=== PATIENT | male | born 1960 | race African-American/Black ===

== ENCOUNTER 2019-09-24 09:44 | Emergency (ER) | payer OTHER ==
[~2019-09-24] VITALS: Ht 185.4 cm; Wt 82.0 kg
[2019-09-24 13:07] LABS: HEMATOCRIT 31.7 % (42.0-52.0); HEMOGLOBIN 10.6 g/dL (14.0-18.0); MEAN CORPUSCULAR HEMOGLOBIN 29.6 pg (28.0-32.0); MEAN CORPUSCULAR VOLUME 88.4 fL (80.0-94.0); PLATELET 192 x1000/uL (130-400); RED BLOOD CELL COUNT 3.59 mill/uL (4.7-6.1); RED CELL DISTRIBUTION WIDTH 14.3 % (11.6-14.6)
[2019-09-24 16:01] VITALS: BP 140/76
== END 2019-09-24 16:25 | disposition home or self-care (01) ==
LOC: ER 09:44
DX: R55 Syncope and collapse (principal); E11.22 Type 2 diabetes mellitus with diabetic chronic kidney disease; I12.9 Hypertensive chronic kidney disease with stage 1 through stage 4 chronic kidney disease, or unspecified chronic kidney disease; N18.9 Chronic kidney disease, unspecified; Z99.2 Dependence on renal dialysis
CPT/HCPCS: 36415; 80048; 85027; 99283

== ENCOUNTER 2019-10-17 11:53 | Inpatient (IN) | payer OTHER ==
[~2019-10-17] VITALS: Ht 180.3 cm; Wt 79.8 kg
[2019-10-17 15:21] LABS: BASOPHILS % 1.6 % (0.0-2.0); EOSINOPHILS % 1.7 % (0.0-5.0); HEMATOCRIT. 31.6 % (42.0-52.0); HEMOGLOBIN. 10.8 g/dL (14.0-18.0); MEAN CORPUSCULAR HEMOGLOBIN 30.2 pg (28.0-32.0); MEAN CORPUSCULAR VOLUME 88.7 fL (80.0-94.0); MEAN PLATELET VOLUME 9.5 fl (7.4-10.4); MONOCYTES % 5.4 % (2.0-8.0); NEUTROPHILS % 65.3 % (40.0-76.0); PLATELET 288 x1000/uL (130-400); RED BLOOD CELL COUNT 3.56 mill/uL (4.7-6.1)
[2019-10-17] MEDS ORDERED: ACETAMINOPHEN 325MG TABLET PO PRN (17:30)
[2019-10-17] MEDS ORDERED: ONDANSETRON HCL 4MG/2ML INJ IV PRN (17:30)
[2019-10-17] MEDS ORDERED: IPRATROPIUM/ALBUTEROL 0.5-3(2.5)MG/3ML NEB HHN PRN (17:30)
[2019-10-17] MEDS ORDERED: CLONIDINE 0.1MG TABLET PO PRN (17:30)
[2019-10-17] MEDS ORDERED: DIPHENHYDRAMINE 50MG/ML VIAL IV PRN (17:30)
[2019-10-17 17:36] LABS: PHOSPHORUS 2.9 mg/dL (2.5-4.9)
[2019-10-17] MEDS ORDERED: CLONIDINE 0.2MG TABLET PO ONE (20:15)
[2019-10-17 22:10] VITALS: BP 129/75
[2019-10-18] MEDS ORDERED: CLON0.1T PO (01:24)
[2019-10-18] MEDS ORDERED: PRO1 PO (01:25)
[2019-10-18] MEDS ORDERED: ASPI-1393 PO (01:25)
[2019-10-18] MEDS ORDERED: ATOR10TA69 PO (01:25)
[2019-10-18] MEDS ORDERED: FURO20TA4 PO (01:25)
[2019-10-18 05:53] VITALS: BP 152/74
[2019-10-18 08:00] VITALS: BP 110/74
[2019-10-18 12:00] VITALS: BP 176/68
[2019-10-18] MEDS ORDERED: NIFEDIPINE 10MG CAPSULE PO SCH (15:00)
[2019-10-18 16:00] VITALS: BP 120/84
[2019-10-18 17:25] VITALS: BP 149/80
[2019-10-18] MEDS ORDERED: ATORVASTATIN CALCIUM 10MG TABLET PO SCH (21:00)
[2019-10-18] MEDS ORDERED: CLONIDINE 0.1MG TABLET PO SCH (22:00)
== END 2019-10-18 18:59 | disposition home or self-care (01) | DRG 314 ==
LOC: ER 12:47 → 7WST 16:43 → EDBEDREQ 19:44 → ENRESERV 20:38
PROVIDERS: ADMIT Internal Medicine; ATTEND Internal Medicine
DX: T82.838A Hemorrhage due to vascular prosthetic devices, implants and grafts, initial encounter (principal); N18.6 End stage renal disease; I12.0 Hypertensive chronic kidney disease with stage 5 chronic kidney disease or end stage renal disease; Y83.2 Surgical operation with anastomosis, bypass or graft as the cause of abnormal reaction of the patient, or of later complication, without mention of misadventure at the time of the procedure; Y84.1 Kidney dialysis as the cause of abnormal reaction of the patient, or of later complication, without mention of misadventure at the time of the procedure; D64.9 Anemia, unspecified; E11.22 Type 2 diabetes mellitus with diabetic chronic kidney disease; Z79.84 Long term (current) use of oral hypoglycemic drugs; Z99.2 Dependence on renal dialysis; Y92.89 Other specified places as the place of occurrence of the external cause; Z79.82 Long term (current) use of aspirin; Z79.899 Other long term (current) drug therapy
CPT/HCPCS: 36415; 71045; 80048; 83735; 84100; 85025; 93970; 99285; C1893

== ENCOUNTER 2023-10-20 00:44 | Emergency (ER) | payer BC, MEDICAID, OTHER ==
[~2023-10-20] VITALS: Ht 177.8 cm; Wt 70.0 kg
[~2023-10-20 00:44] MED LIST: AMLO10TA80 PO; ASPI-1406 MT; HYDR-4134 PO
[2023-10-20 00:47] VITALS: O2SAT 97
[2023-10-20] MEDS ORDERED: SODIUM CHLORIDE 0.9% 1,000 ML IV ONE (01:00)
[2023-10-20 03:14] LABS: BASOPHILS % 0.8 % (0.0-2.0); EOSINOPHILS % 0.3 % (0.0-5.0); HEMATOCRIT. 42.5 % (42.0-52.0); HEMOGLOBIN. 13.9 g/dL (14.0-18.0); LYMPHOCYTES % 14.7 % (20.0-50.0); MEAN CORPUSCULAR HEMOGLOBIN 29.2 pg (28.0-32.0); MEAN CORPUSCULAR HGB CONC 32.8 g/dL (31.0-37.0); MEAN CORPUSCULAR VOLUME 88.9 fL (80.0-94.0); MEAN PLATELET VOLUME 7.2 fl (7.4-10.4); MONOCYTES % 8.6 % (2.0-8.0); NEUTROPHILS % 75.6 % (40.0-76.0); PLATELET 401 x1000/uL (130-400); RED BLOOD CELL COUNT 4.78 mill/uL (4.7-6.1); RED CELL DISTRIBUTION WIDTH 18.2 % (11.6-14.6); WHITE BLOOD COUNT 8.9 x1000/uL (4.5-11.0)
[2023-10-20 03:36] LABS: PROTHROMBIN TIME 11.1 sec (9.6-11.0)
[2023-10-20 03:59] LABS: ALANINE AMINOTRANSFERASE 19 IU/L (10-49); ALBUMIN 4.8 g/dL (3.2-4.8); ASPARTATE AMINOTRANSFERASE 20 IU/L (<34); BILIRUBIN TOTAL 0.4 mg/dL (0.1-1.0); CALCIUM 9.7 mg/dL (8.7-10.4); CARBON DIOXIDE 35 mEq/L (21-32); CHLORIDE 96 mEq/L (98-107); GLUCOSE 92 mg/dL (70-105); POTASSIUM 3.3 mEq/L (3.5-5.1); PROTEIN TOTAL 9.7 g/dL (6.0-8.3); SODIUM 138 mEq/L (136-145); UREA NITROGEN BLOOD 30 mg/dL (9-23)
[2023-10-20 04:06] LABS: ETHANOL BLOOD < 10 mg/dL (<10)
[2023-10-20 04:29] LABS: CREATININE 5.4 mg/dL (0.6-1.3); TROPONIN I HIGH SENSITIVITY 89 ng/L (3.0-53)
[2023-10-20 07:39] VITALS: BP 120/72; PULSE 82; RESP 16; TEMP 98.4
== END 2023-10-20 07:46 | disposition left against medical advice (07) ==
LOC: ER 00:44
DX: I95.9 Hypotension, unspecified (principal); R55 Syncope and collapse; E11.22 Type 2 diabetes mellitus with diabetic chronic kidney disease; I12.0 Hypertensive chronic kidney disease with stage 5 chronic kidney disease or end stage renal disease; N18.6 End stage renal disease; Z98.890 Other specified postprocedural states
CPT/HCPCS: 80053; 80320; 83605; 85025; 85610; 86850; 86900; 86901; 87040; 84484; 36415; 84145; 71045; 93005; 96360; 99285; J7030; G0480

== ENCOUNTER 2024-03-24 09:29 | Inpatient (IN) | payer BC, MEDICAID, OTHER ==
[~2024-03-24] VITALS: Ht 175.3 cm; Wt 70.8 kg
[~2024-03-24 09:29] MED LIST changes: -HYDR-4134 PO; +HYDR25TA78 PO
[2024-03-24] MEDS ORDERED: NIFEDIPINE (09:34)
[2024-03-24] MEDS ORDERED: LISINOPRIL (09:34)
[2024-03-24] MEDS ORDERED: TICAGRELOR (09:34)
[2024-03-24] MEDS ORDERED: LEVETIRACETAM (09:34)
[2024-03-24] MEDS ORDERED: BUPROPION (09:34)
[2024-03-24] MEDS ORDERED: SEVELAMER (09:34)
[2024-03-24] MEDS ORDERED: CARVEDILOL (09:34)
[2024-03-24] MEDS ORDERED: TRAZODONE (09:34)
[2024-03-24 10:19] LABS: BASOPHILS % 0.9 % (0.0-2.0); EOSINOPHILS % 0.3 % (0.0-5.0); HEMATOCRIT. 47.7 % (42.0-52.0); HEMOGLOBIN. 15.7 g/dL (14.0-18.0); LYMPHOCYTES % 22.3 % (20.0-50.0); MEAN CORPUSCULAR HGB CONC 32.8 g/dL (31.0-37.0); MEAN CORPUSCULAR VOLUME 91.3 fL (80.0-94.0); MEAN PLATELET VOLUME 7.3 fl (7.4-10.4); MONOCYTES % 8.2 % (2.0-8.0); NEUTROPHILS % 68.3 % (40.0-76.0); PLATELET 364 x1000/uL (130-400); RED BLOOD CELL COUNT 5.22 mill/uL (4.7-6.1); RED CELL DISTRIBUTION WIDTH 18.3 % (11.6-14.6); WHITE BLOOD COUNT 7.2 x1000/uL (4.5-11.0)
[2024-03-24] MEDS: SODIUM CHLORIDE 0.9% 1000ML BAG (SEPSIS BOLUS) IV ONE (10:25)
[2024-03-24] MEDS: PIPERACILLIN/TAZO 3.375G/50ML 50 ML IV ONE (10:25)
[2024-03-24 10:29] LABS: PROTHROMBIN TIME 11.6 sec (9.6-11.0)
[2024-03-24 10:51] LABS: TROPONIN I HIGH SENSITIVITY 68 ng/L (3.0-53)
[2024-03-24] MEDS: VANCOMYCIN 1G PREMIX 200 ML IV ONE (10:53)
[2024-03-24 14:36] LABS: CHLORIDE 101 mEq/L (98-107); POTASSIUM 3.6 mEq/L (3.5-5.1); SODIUM 139 mEq/L (136-145)
[2024-03-24 14:37] LABS: CALCIUM 8.9 mg/dL (8.7-10.4); CARBON DIOXIDE 27 mEq/L (21-32)
[2024-03-24 14:42] LABS: GLUCOSE 156 mg/dL (70-105); UREA NITROGEN BLOOD 33 mg/dL (9-23)
[2024-03-24 14:44] LABS: ALANINE AMINOTRANSFERASE 13 IU/L (10-49); ALBUMIN 4.1 g/dL (3.2-4.8); ASPARTATE AMINOTRANSFERASE 16 IU/L (<34); BILIRUBIN TOTAL 0.2 mg/dL (0.1-1.0)
[2024-03-24 14:53] LABS: CREATININE 6.4 mg/dL (0.6-1.3)
[2024-03-24 15:20] VITALS: BP 136/74; PULSE 61; RESP 20; TEMP 97.9
[2024-03-24] MEDS ORDERED: DEXTROSE 50% WATER 50ML SYRINGE IV PRN (17:00)
[2024-03-24] MEDS: BLOOD SUGAR DIAGNOSTIC STRIP TEST SCH (17:10)
[2024-03-24] MEDS: INSULIN LISPRO 100 UNITS/ML SUBCUT SCH (17:40)
[2024-03-24] MEDS ORDERED: IPRATROPIUM/ALBUTEROL 0.5-3(2.5)MG/3ML NEB HHN PRN (19:45)
[2024-03-24] MEDS ORDERED: CLONIDINE 0.1MG TABLET PO PRN (19:45)
[2024-03-24] MEDS ORDERED: ONDANSETRON HCL 4MG/2ML INJ IV PRN (19:45)
[2024-03-24] MEDS ORDERED: ACETAMINOPHEN 325MG TABLET PO PRN (19:45)
[2024-03-24] MEDS ORDERED: DIPHENHYDRAMINE 50MG/ML VIAL IV PRN (19:45)
[2024-03-24 20:00] VITALS: BP 143/79; PULSE 59; RESP 20; TEMP 97.4
[2024-03-25] VITALS: BP 119/69; PULSE 62; RESP 20; TEMP 97
[2024-03-25 04:00] VITALS: BP 137/86; PULSE 61; RESP 20; TEMP 97.2
[2024-03-25 06:05] LABS: BASOPHILS % 1.2 % (0.0-2.0); EOSINOPHILS % 1.9 % (0.0-5.0); HEMATOCRIT. 39.8 % (42.0-52.0); LYMPHOCYTES % 26.1 % (20.0-50.0); MEAN CORPUSCULAR HEMOGLOBIN 30.1 pg (28.0-32.0); MEAN CORPUSCULAR HGB CONC 32.8 g/dL (31.0-37.0); MEAN CORPUSCULAR VOLUME 91.9 fL (80.0-94.0); MEAN PLATELET VOLUME 7.7 fl (7.4-10.4); MONOCYTES % 11.1 % (2.0-8.0); NEUTROPHILS % 59.7 % (40.0-76.0); PLATELET 275 x1000/uL (130-400); RED BLOOD CELL COUNT 4.33 mill/uL (4.7-6.1); RED CELL DISTRIBUTION WIDTH 17.9 % (11.6-14.6); WHITE BLOOD COUNT 5.8 x1000/uL (4.5-11.0)
[2024-03-25 06:11] LABS: POTASSIUM 3.4 mEq/L (3.5-5.1)
[2024-03-25 06:12] LABS: CALCIUM 9.4 mg/dL (8.7-10.4)
[2024-03-25 06:33] LABS: CREATININE 7.7 mg/dL (0.6-1.3)
[2024-03-25 08:00] VITALS: BP 131/80; PULSE 68; RESP 20; TEMP 97.5
[2024-03-25 11:38] LABS: TROPONIN I HIGH SENSITIVITY 70 ng/L (3.0-53)
[2024-03-25 12:00] VITALS: BP 163/80; PULSE 65; RESP 18; TEMP 97.1
[2024-03-25] MEDS: SEVELAMER CARBONATE 800 MG TABLET PO SCH (12:01)
[2024-03-25] MEDS: FOLIC ACID/VITAMIN B COMP W-C TABLET PO SCH (12:01)
[2024-03-25] MEDS: MIDODRINE HCL 5MG TABLET PO SCH (14:39)
[2024-03-25 14:56] LABS: HEPATITIS B SURFACE ANTIGEN NEGATIVE (Negative)
[2024-03-25 15:17] LABS: HEPATITIS A AB IGM NEGATIVE (Negative); HEPATITIS B CORE AB IGM NEGATIVE (Negative)
[2024-03-25 15:18] LABS: HEPATITIS C AB NON REACTIVE (Neg) (Negative)
[2024-03-25 16:00] VITALS: BP 169/91; PULSE 64; RESP 18; TEMP 98.6
[2024-03-25 20:00] VITALS: BP 101/67; PULSE 64; RESP 18; TEMP 97.6
[2024-03-26] VITALS (14 sets, daily range): BP systolic 110–178; BP diastolic 49–89; PULSE 2–81; RESP 16–20; TEMP 97.4–98.6
[2024-03-26 07:42] LABS: CHLORIDE 100 mEq/L (98-107); SODIUM 139 mEq/L (136-145)
[2024-03-26 07:43] LABS: CALCIUM 9.4 mg/dL (8.7-10.4); CARBON DIOXIDE 27 mEq/L (21-32)
[2024-03-26 07:48] LABS: GLUCOSE 64 mg/dL (70-105)
[2024-03-26 07:49] LABS: UREA NITROGEN BLOOD 50 mg/dL (9-23)
[2024-03-26 07:50] LABS: PHOSPHORUS 6.8 mg/dL (2.5-4.9)
[2024-03-26 07:55] LABS: BASOPHILS % 0.6 % (0.0-2.0); EOSINOPHILS % 2.8 % (0.0-5.0); HEMATOCRIT. 38.5 % (42.0-52.0); HEMOGLOBIN. 13.1 g/dL (14.0-18.0); LYMPHOCYTES % 29.7 % (20.0-50.0); MEAN CORPUSCULAR HEMOGLOBIN 30.6 pg (28.0-32.0); MEAN CORPUSCULAR HGB CONC 34.1 g/dL (31.0-37.0); MEAN CORPUSCULAR VOLUME 89.9 fL (80.0-94.0); MEAN PLATELET VOLUME 7.7 fl (7.4-10.4); MONOCYTES % 10.2 % (2.0-8.0); NEUTROPHILS % 56.7 % (40.0-76.0); PLATELET 263 x1000/uL (130-400); RED BLOOD CELL COUNT 4.28 mill/uL (4.7-6.1); RED CELL DISTRIBUTION WIDTH 17.7 % (11.6-14.6)
[2024-03-26 09:07] LABS: TROPONIN I HIGH SENSITIVITY 82 ng/L (3.0-53)
[2024-03-26 09:08] LABS: CREATININE 9.2 mg/dL (0.6-1.3)
[2024-03-27] VITALS: BP 128/76; PULSE 76; RESP 19; TEMP 98.2
[2024-03-27 04:00] VITALS: BP 124/80; PULSE 80; RESP 20; TEMP 97.8
[2024-03-27 08:00] VITALS: BP 148/90; PULSE 60; RESP 18; TEMP 97.5
[2024-03-27 11:49] VITALS: BP 148/90; PULSE 60; TEMP 97.5; O2SAT 100
[2024-05-14] MEDS ORDERED: ATOR80TA MT (18:31)
== END 2024-03-27 14:20 | disposition home or self-care (01) | DRG 73 ==
LOC: ER 09:47 → 8WST 12:56 → EDBEDREQTM 12:59 → EDBEDREQ 12:59
PROVIDERS: ADMIT Internal Medicine; ATTEND Internal Medicine
PROC: 5A1D70Z Performance of Urinary Filtration, Intermittent, Less than 6 Hours Per Day (ICD-10-PCS; principal; 2024-03-26)
DX: G90.8 Other disorders of autonomic nervous system (principal); N18.6 End stage renal disease; I13.2 Hypertensive heart and chronic kidney disease with heart failure and with stage 5 chronic kidney disease, or end stage renal disease; I69.352 Hemiplegia and hemiparesis following cerebral infarction affecting left dominant side; I50.32 Chronic diastolic (congestive) heart failure; L97.922 Non-pressure chronic ulcer of unspecified part of left lower leg with fat layer exposed; L97.912 Non-pressure chronic ulcer of unspecified part of right lower leg with fat layer exposed; I95.9 Hypotension, unspecified; D64.9 Anemia, unspecified; E11.22 Type 2 diabetes mellitus with diabetic chronic kidney disease; E87.6 Hypokalemia; E11.51 Type 2 diabetes mellitus with diabetic peripheral angiopathy without gangrene; I44.7 Left bundle-branch block, unspecified; I44.0 Atrioventricular block, first degree; L98.492 Non-pressure chronic ulcer of skin of other sites with fat layer exposed; L85.3 Xerosis cutis; I27.21 Secondary pulmonary arterial hypertension; E11.621 Type 2 diabetes mellitus with foot ulcer; Z79.84 Long term (current) use of oral hypoglycemic drugs; Z99.2 Dependence on renal dialysis; Z79.899 Other long term (current) drug therapy
CPT/HCPCS: 36415; 71045; 80048; 80053; 82962; 83605; 83735; 83880; 84100; 84145; 84484; 85025; 86705; 86709; 87340; 90935; 93005; 93306; 93970; 99291; J2543; J3370; J7030

== ENCOUNTER 2025-08-14 19:26 | Inpatient (IN) | payer BC, MEDICAID ==
[~2025-08-14] VITALS: Ht 182.9 cm; Wt 76.7 kg
[~2025-08-14 19:26] MED LIST changes: -AMLO10TA80 PO; +ATOR40TA70 PO; +PANT40TA51 PO; +SEVE800T8 MT
[2025-08-14 19:31] VITALS: O2SAT 99
[2025-08-14 23:30] VITALS: BP 157/77; PULSE 55; RESP 18; TEMP 36.4736
[2025-08-15] VITALS (14 sets, daily range): BP systolic 140–190; BP diastolic 58–87; PULSE 57–85; RESP 16–20; TEMP 36.3–36.78072; O2SAT 99–100
[2025-08-15] MEDS ORDERED: ONDANSETRON HCL 4MG/2ML INJ IV PRN (00:45)
[2025-08-15] MEDS: HYDRALAZINE HCL 25MG TABLET PO SCH (05:32)
[2025-08-15] MEDS: ASPIRIN 81MG EC TABLET PO SCH (09:00)
[2025-08-15] MEDS: HEPARIN 5000 UNITS/ML VIAL SUBCUT SCH (09:00)
[2025-08-15] MEDS: ATORVASTATIN CALCIUM 40MG TABLET PO SCH (09:04)
[2025-08-15] MEDS: SEVELAMER CARBONATE 800 MG TABLET PO SCH (09:04)
[2025-08-15] MEDS: PANTOPRAZOLE 40MG DR TABLET PO SCH (09:04)
[2025-08-15 09:16] LABS: UREA NITROGEN BLOOD 59 mg/dL (9-23)
[2025-08-15 09:18] LABS: BILIRUBIN DIRECT 0.1 mg/dL (<=3.0); BILIRUBIN TOTAL 0.3 mg/dL (0.1-1.0); PROTEIN TOTAL 6.9 g/dL (6.0-8.3)
[2025-08-15 09:21] LABS: BASOPHILS % 1.4 % (0.0-2.0); EOSINOPHILS % 2.4 % (0.0-5.0); HEMATOCRIT. 33.1 % (42.0-52.0); HEMOGLOBIN. 10.7 g/dL (14.0-18.0); LYMPHOCYTES % 20.4 % (20.0-50.0); MEAN PLATELET VOLUME 7.5 fl (7.4-10.4); MONOCYTES % 12.4 % (2.0-8.0); NEUTROPHILS % 63.4 % (40.0-76.0); PLATELET 270 x1000/uL (130-400); RED BLOOD CELL COUNT 3.97 mill/uL (4.7-6.1); RED CELL DISTRIBUTION WIDTH 18.1 % (11.6-14.6)
[2025-08-15 11:48] LABS: ASPARTATE AMINOTRANSFERASE < 8 IU/L (<34); CREATININE 10.5 mg/dL (0.6-1.3)
[2025-08-15 11:50] LABS: TROPONIN I HIGH SENSITIVITY 80 ng/L (3.0-53)
[2025-08-15 14:08] LABS: HEPATITIS A AB IGM NEGATIVE (Negative); HEPATITIS B CORE AB IGM NEGATIVE (Negative)
[2025-08-15 14:09] LABS: HEPATITIS C AB NON REACTIVE (Neg) (Negative)
[2025-08-16] VITALS: BP 155/59; PULSE 70; RESP 18; TEMP 36.6; O2SAT 99
[2025-08-16 04:00] VITALS: BP 156/60; PULSE 75; RESP 18; TEMP 36.3; O2SAT 94
[2025-08-16 08:00] VITALS: BP 153/74; PULSE 73; RESP 20; TEMP 36.4; O2SAT 100
[2025-08-16 08:09] LABS: BASOPHILS % 2.9 % (0.0-2.0); EOSINOPHILS % 1.3 % (0.0-5.0); HEMATOCRIT. 32.9 % (42.0-52.0); HEMOGLOBIN. 10.7 g/dL (14.0-18.0); LYMPHOCYTES % 21.8 % (20.0-50.0); MEAN PLATELET VOLUME 8.2 fl (7.4-10.4); MONOCYTES % 13.5 % (2.0-8.0); NEUTROPHILS % 60.5 % (40.0-76.0); PLATELET 275 x1000/uL (130-400); RED BLOOD CELL COUNT 3.93 mill/uL (4.7-6.1); RED CELL DISTRIBUTION WIDTH 17.9 % (11.6-14.6)
[2025-08-16 08:14] LABS: UREA NITROGEN BLOOD 52.0 mg/dL (9-23)
[2025-08-16 10:21] LABS: CREATININE 10.6 mg/dL (0.6-1.3)
[2025-08-16 12:00] VITALS: BP 142/85; PULSE 67; RESP 20; TEMP 36.5; O2SAT 99
[2025-08-16 16:00] VITALS: BP 159/90; PULSE 77; RESP 20; TEMP 36.4; O2SAT 97
[2025-08-16 20:00] VITALS: BP 191/75; PULSE 71; RESP 18; TEMP 36.7; O2SAT 98
[2025-08-16] MEDS: ACETAMINOPHEN 325MG TABLET PO PRN (23:49)
[2025-08-17] VITALS (8 sets, daily range): BP systolic 59–189; BP diastolic 79–99; PULSE 63–84; RESP 17–19; TEMP 36.1–36.5; O2SAT 100
[2025-08-17] MEDS: CLONIDINE 0.1MG TABLET PO PRN (13:04)
[2025-08-18] VITALS (11 sets, daily range): BP systolic 102–162; BP diastolic 54–88; PULSE 70–92; RESP 16–20; TEMP 36.3–36.9; O2SAT 96–100
[2025-08-18 17:09] LABS: UREA NITROGEN BLOOD 28.0 mg/dL (9-23)
[2025-08-18 17:27] LABS: CREATININE 9.6 mg/dL (0.6-1.3)
[2025-08-19] VITALS (14 sets, daily range): BP systolic 118–191; BP diastolic 69–106; PULSE 63–97; RESP 16–18; TEMP 36.3918–36.8; O2SAT 97–100
[2025-08-19 06:50] LABS: BASOPHILS % 1.2 % (0.0-2.0); EOSINOPHILS % 1.2 % (0.0-5.0); HEMATOCRIT. 35.0 % (42.0-52.0); HEMOGLOBIN. 11.0 g/dL (14.0-18.0); LYMPHOCYTES % 18.0 % (20.0-50.0); MEAN PLATELET VOLUME 8.5 fl (7.4-10.4); MONOCYTES % 13.0 % (2.0-8.0); NEUTROPHILS % 66.6 % (40.0-76.0); PLATELET 288 x1000/uL (130-400); RED BLOOD CELL COUNT 4.12 mill/uL (4.7-6.1); RED CELL DISTRIBUTION WIDTH 17.5 % (11.6-14.6)
[2025-08-19 07:37] LABS: UREA NITROGEN BLOOD 45.0 mg/dL (9-23)
[2025-08-19 09:26] LABS: CREATININE 10.8 mg/dL (0.6-1.3)
[2025-08-20] VITALS: BP 174/92; PULSE 83; RESP 18; TEMP 36.5; O2SAT 97
[2025-08-20 04:00] VITALS: BP 154/82; PULSE 77; RESP 17; TEMP 36.2; O2SAT 96
[2025-08-20 20:00] VITALS: BP 200/101; PULSE 78; RESP 18; TEMP 36.4; O2SAT 97
[2025-08-20] MEDS: AMLODIPINE 5MG TABLET PO SCH (23:28)
[2025-08-21] VITALS (14 sets, daily range): BP systolic 119–187; BP diastolic 60–84; PULSE 57–89; RESP 17–19; TEMP 36.2–36.61404; O2SAT 95–100
[2025-08-21] MEDS: CLONIDINE 0.2MG TABLET PO PRN (01:00)
[2025-08-21] MEDS: HYDRALAZINE HCL 50MG TABLET PO SCH (14:00)
[2025-08-22] VITALS: BP 169/71; PULSE 88; RESP 19; TEMP 36.8; O2SAT 100
[2025-08-22 04:00] VITALS: BP 172/88; PULSE 95; RESP 19; TEMP 36.7; O2SAT 99
[2025-08-22 08:00] VITALS: BP 179/77; PULSE 19; RESP 19; TEMP 36; O2SAT 98
[2025-08-22 12:00] VITALS: BP 137/58; PULSE 18; RESP 18; TEMP 36.3; O2SAT 98
[2025-08-22] MEDS: NIFEDIPINE XL 60MG TAB PO SCH (15:35)
[2025-08-22] MEDS: HYDRALAZINE HCL 100MG TABLET PO SCH (15:36)
[2025-08-22 16:00] VITALS: BP 135/67; PULSE 18; RESP 18; TEMP 36.4; O2SAT 99
[2025-08-22 20:00] VITALS: BP 125/48; PULSE 70; RESP 18; TEMP 36.3; O2SAT 99
[2025-08-23] VITALS (15 sets, daily range): BP systolic 118–163; BP diastolic 50–78; PULSE 75–98; RESP 17–19; TEMP 36–37.2; O2SAT 97–100
[2025-08-23] MEDS: DIPHENHYDRAMINE 25MG CAPSULE PO PRN (22:58)
[2025-08-24] VITALS: BP 160/80; PULSE 93; RESP 18; TEMP 37.1; O2SAT 98
[2025-08-24 04:00] VITALS: BP 151/86; PULSE 105; RESP 18; TEMP 35.9; O2SAT 98
[2025-08-24 08:00] VITALS: BP 116/81; PULSE 91; RESP 19; TEMP 36.3; O2SAT 98
[2025-08-24 12:00] VITALS: BP 156/80; PULSE 97; RESP 18; TEMP 36.3; O2SAT 97
[2025-08-24 16:00] VITALS: BP 158/83; PULSE 93; RESP 18; TEMP 36.2; O2SAT 98
[2025-08-24 20:00] VITALS: BP 122/77; PULSE 88; RESP 18; TEMP 35.6; O2SAT 99
[2025-08-25] VITALS: BP 149/72; PULSE 90; RESP 18; TEMP 36.5; O2SAT 98
[2025-08-25 04:00] VITALS: BP 164/84; PULSE 88; RESP 18; TEMP 36.4; O2SAT 99
[2025-08-25 08:00] VITALS: BP 144/65; PULSE 63; RESP 18; TEMP 36.2; O2SAT 99
[2025-08-25 12:00] VITALS: BP 143/53; PULSE 62; RESP 18; TEMP 36.3; O2SAT 99
[2025-08-25 16:00] VITALS: BP 138/62; PULSE 60; RESP 18; TEMP 36.3; O2SAT 100
[2025-08-25 20:00] VITALS: BP 135/66; PULSE 66; RESP 18; TEMP 36.4; O2SAT 95
[2025-08-26] VITALS (13 sets, daily range): BP systolic 102–196; BP diastolic 45–86; PULSE 82–95; RESP 17–18; TEMP 36.2–36.7; O2SAT 96–100
[2025-08-26 13:21] LABS: BASOPHILS % 1.2 % (0.0-2.0); EOSINOPHILS % 1.3 % (0.0-5.0); HEMATOCRIT. 32.0 % (42.0-52.0); HEMOGLOBIN. 10.6 g/dL (14.0-18.0); LYMPHOCYTES % 11.7 % (20.0-50.0); MEAN PLATELET VOLUME 8.1 fl (7.4-10.4); MONOCYTES % 7.8 % (2.0-8.0); NEUTROPHILS % 78.0 % (40.0-76.0); PLATELET 313 x1000/uL (130-400); RED BLOOD CELL COUNT 3.87 mill/uL (4.7-6.1); RED CELL DISTRIBUTION WIDTH 17.5 % (11.6-14.6)
[2025-08-26 13:31] LABS: UREA NITROGEN BLOOD 55.0 mg/dL (9-23)
[2025-08-26 13:36] LABS: CREATININE 13.8 mg/dL (0.6-1.3)
[2025-08-27] VITALS: BP 154/64; PULSE 95; RESP 18; TEMP 36.6; O2SAT 97
[2025-08-27 04:00] VITALS: BP 166/89; PULSE 100; RESP 18; TEMP 36.5; O2SAT 98
[2025-08-27 08:00] VITALS: BP 175/93; PULSE 110; RESP 18; TEMP 37.3; O2SAT 97
[2025-08-27 12:00] VITALS: BP 160/70; PULSE 105; RESP 18; TEMP 37.3; O2SAT 97
[2025-08-27 16:00] VITALS: BP 155/82; PULSE 100; RESP 19; TEMP 36.1; O2SAT 97
[2025-08-27 20:00] VITALS: BP 162/86; PULSE 98; RESP 19; TEMP 36.7; O2SAT 97
[2025-08-28] VITALS (12 sets, daily range): BP systolic 115–169; BP diastolic 67–84; PULSE 68–100; RESP 16–20; TEMP 36.3–36.8; O2SAT 97–99
[2025-08-28] MEDS: SEVELAMER CARBONATE 800 MG TABLET PO SCH (17:49)
[2025-08-29] VITALS: BP 125/55; PULSE 92; RESP 18; TEMP 36.7; O2SAT 100
[2025-08-29 04:00] VITALS: BP 136/77; PULSE 81; RESP 17; TEMP 36.7; O2SAT 97
[2025-08-29 08:00] VITALS: BP 147/67; PULSE 77; RESP 18; TEMP 36.2; O2SAT 100
[2025-08-29 12:00] VITALS: BP 142/82; PULSE 70; RESP 70; TEMP 36.2; O2SAT 100
[2025-08-29 16:00] VITALS: BP 117/55; PULSE 65; RESP 17; TEMP 36.4; O2SAT 100
[2025-08-29 20:00] VITALS: BP 136/73; PULSE 89; RESP 18; TEMP 35.6; O2SAT 96
[2025-08-30] VITALS (9 sets, daily range): BP systolic 114–179; BP diastolic 61–87; PULSE 78–92; RESP 17–20; TEMP 35.6–36.7; O2SAT 95–100
[2025-08-31] VITALS: BP_SYST 150; BP_SYST 165; BP_DIAS 70; BP_DIAS 81; PULSE 89; RESP 18; TEMP 36.4; O2SAT 100
[2025-08-31 04:00] VITALS: BP 137/71; PULSE 85; RESP 18; TEMP 36.6; O2SAT 100
[2025-08-31 08:00] VITALS: BP 158/86; PULSE 88; RESP 18; TEMP 36.5; O2SAT 100
[2025-08-31 08:02] LABS: BASOPHILS % 2.0 % (0.0-2.0); EOSINOPHILS % 3.1 % (0.0-5.0); HEMATOCRIT. 31.4 % (42.0-52.0); HEMOGLOBIN. 9.9 g/dL (14.0-18.0); LYMPHOCYTES % 20.8 % (20.0-50.0); MEAN PLATELET VOLUME 7.8 fl (7.4-10.4); MONOCYTES % 12.9 % (2.0-8.0); NEUTROPHILS % 61.2 % (40.0-76.0); PLATELET 273 x1000/uL (130-400); RED BLOOD CELL COUNT 3.68 mill/uL (4.7-6.1); RED CELL DISTRIBUTION WIDTH 17.3 % (11.6-14.6)
[2025-08-31 08:20] LABS: UREA NITROGEN BLOOD 26.0 mg/dL (9-23)
[2025-08-31 08:43] LABS: CREATININE 10.4 mg/dL (0.6-1.3)
[2025-08-31 12:00] VITALS: BP 149/67; PULSE 80; RESP 18; O2SAT 98
[2025-08-31] MEDS: SODIUM POLYSTYRENE SULFONATE 15 G/60 ML BOT PO NR (12:46)
[2025-08-31 16:00] VITALS: BP 103/58; PULSE 76; RESP 18; TEMP 37.1; O2SAT 98
[2025-08-31 20:00] VITALS: BP 148/76; PULSE 86; RESP 18; TEMP 36.3; O2SAT 97
[2025-09-01] VITALS (14 sets, daily range): BP systolic 127–176; BP diastolic 70–95; PULSE 66–92; RESP 16–19; TEMP 36.33624–37.8; O2SAT 94–100
[2025-09-01 11:41] LABS: UREA NITROGEN BLOOD 37.0 mg/dL (9-23)
[2025-09-01 12:27] LABS: CREATININE 12.5 mg/dL (0.6-1.3)
[2025-09-02] VITALS: BP 177/72; PULSE 81; RESP 18; TEMP 36.4; O2SAT 96
[2025-09-02 08:00] VITALS: BP 134/72; PULSE 60; RESP 16; TEMP 36.3; O2SAT 99
[2025-09-02 12:00] VITALS: BP 129/64; PULSE 67; RESP 16; TEMP 36.3; O2SAT 99
[2025-09-02 16:00] VITALS: BP 130/60; PULSE 60; RESP 16; TEMP 36.2; O2SAT 100
[2025-09-02 20:00] VITALS: BP 147/60; PULSE 73; RESP 19; TEMP 36.4; O2SAT 98
[2025-09-03] VITALS (13 sets, daily range): BP systolic 122–160; BP diastolic 60–74; PULSE 72–89; RESP 14–20; TEMP 36.3–36.6; O2SAT 95–100
[2025-09-03 06:46] LABS: BASOPHILS % 1.2 % (0.0-2.0); EOSINOPHILS % 3.7 % (0.0-5.0); HEMATOCRIT. 28.5 % (42.0-52.0); HEMOGLOBIN. 9.4 g/dL (14.0-18.0); LYMPHOCYTES % 18.4 % (20.0-50.0); MEAN PLATELET VOLUME 8.2 fl (7.4-10.4); MONOCYTES % 10.5 % (2.0-8.0); NEUTROPHILS % 66.2 % (40.0-76.0); PLATELET 232 x1000/uL (130-400); RED BLOOD CELL COUNT 3.41 mill/uL (4.7-6.1); RED CELL DISTRIBUTION WIDTH 16.8 % (11.6-14.6)
[2025-09-03 06:51] LABS: UREA NITROGEN BLOOD 37.0 mg/dL (9-23)
[2025-09-03 07:19] LABS: CREATININE 11.5 mg/dL (0.6-1.3)
[2025-09-04] VITALS: BP 149/76; PULSE 95; RESP 18; TEMP 36.6; O2SAT 96
[2025-09-04 04:00] VITALS: BP 137/87; PULSE 89; RESP 18; TEMP 36.4; O2SAT 98
[2025-09-04 06:28] LABS: BASOPHILS % 1.1 % (0.0-2.0); EOSINOPHILS % 4.1 % (0.0-5.0); HEMATOCRIT. 30.6 % (42.0-52.0); HEMOGLOBIN. 9.7 g/dL (14.0-18.0); LYMPHOCYTES % 15.8 % (20.0-50.0); MEAN PLATELET VOLUME 7.9 fl (7.4-10.4); MONOCYTES % 9.0 % (2.0-8.0); NEUTROPHILS % 70.0 % (40.0-76.0); PLATELET 200 x1000/uL (130-400); RED BLOOD CELL COUNT 3.62 mill/uL (4.7-6.1); RED CELL DISTRIBUTION WIDTH 17.3 % (11.6-14.6)
[2025-09-04 06:52] LABS: UREA NITROGEN BLOOD 24.0 mg/dL (9-23)
[2025-09-04 07:34] LABS: CREATININE 9.2 mg/dL (0.6-1.3)
[2025-09-04 08:00] VITALS: BP 157/70; PULSE 92; RESP 20; TEMP 35.9; O2SAT 100
[2025-09-04 12:00] VITALS: BP 157/79; PULSE 89; RESP 18; TEMP 36.5; O2SAT 98
[2025-09-04 16:00] VITALS: BP 141/54; PULSE 72; RESP 18; TEMP 36.3; O2SAT 97
[2025-09-04 20:00] VITALS: BP 161/54; PULSE 94; RESP 18; TEMP 36.4; O2SAT 96
[2025-09-05] VITALS (13 sets, daily range): BP systolic 110–164; BP diastolic 61–80; PULSE 69–100; RESP 16–18; TEMP 36.4–37.3; O2SAT 96–100
[2025-09-05 05:18] LABS: UREA NITROGEN BLOOD 38.0 mg/dL (9-23)
[2025-09-05 05:34] LABS: CREATININE 11.5 mg/dL (0.6-1.3)
[2025-09-05 06:04] LABS: BASOPHILS % 3.1 % (0.0-2.0); EOSINOPHILS % 2.5 % (0.0-5.0); HEMATOCRIT. 27.8 % (42.0-52.0); HEMOGLOBIN. 8.8 g/dL (14.0-18.0); LYMPHOCYTES % 16.8 % (20.0-50.0); MEAN PLATELET VOLUME 8.1 fl (7.4-10.4); MONOCYTES % 8.1 % (2.0-8.0); NEUTROPHILS % 69.5 % (40.0-76.0); PLATELET 216 x1000/uL (130-400); RED BLOOD CELL COUNT 3.31 mill/uL (4.7-6.1); RED CELL DISTRIBUTION WIDTH 17.2 % (11.6-14.6)
[2025-09-06] VITALS: BP 139/58; PULSE 91; RESP 17; TEMP 36.2; O2SAT 97
[2025-09-06 04:00] VITALS: BP 145/63; PULSE 92; RESP 18; TEMP 36.7; O2SAT 98
[2025-09-06 08:00] VITALS: BP 141/64; PULSE 88; RESP 19; TEMP 36.3; O2SAT 100
[2025-09-06 12:00] VITALS: BP 165/88; PULSE 92; RESP 18; TEMP 35.8; O2SAT 97
[2025-09-06 16:00] VITALS: BP 146/90; PULSE 89; RESP 18; TEMP 35.7; O2SAT 96
[2025-09-06 20:00] VITALS: BP 130/71; PULSE 78; RESP 18; TEMP 36.6; O2SAT 97
[2025-09-07] VITALS: BP 144/77; PULSE 88; RESP 17; TEMP 36.9; O2SAT 93
[2025-09-07] MEDS: DOCUSATE SODIUM 100MG CAPSULE PO PRN (02:33)
[2025-09-07 04:00] VITALS: BP 150/77; PULSE 92; RESP 18; TEMP 36.7; O2SAT 97
[2025-09-07 08:00] VITALS: BP 140/66; PULSE 85; RESP 19; TEMP 36.2; O2SAT 98
[2025-09-07 12:00] VITALS: BP 136/68; PULSE 80; RESP 18; TEMP 36.1; O2SAT 99
[2025-09-07 16:00] VITALS: BP 130/58; PULSE 76; RESP 17; TEMP 36.3; O2SAT 99
[2025-09-07 20:00] VITALS: BP 107/68; PULSE 98; RESP 17; TEMP 36.7; O2SAT 97
[2025-09-07] MEDS: SODIUM POLYSTYRENE SULFONATE 15 G/60 ML BOT PO NR (20:41)
[2025-09-08] VITALS (12 sets, daily range): BP systolic 116–162; BP diastolic 55–104; PULSE 75–105; RESP 16–19; TEMP 36.22512–37.1; O2SAT 94–100
[2025-09-08] MEDS: INSULIN REGULAR (HUMULIN R) 1000UNITS/10ML VIAL IV NR (00:15)
[2025-09-08] MEDS: BLOOD SUGAR DIAGNOSTIC STRIP TEST NR (01:30)
[2025-09-08] MEDS: DEXTROSE 50% WATER 50ML SYRINGE IV NR ×2 (03:42→03:54)
[2025-09-08 21:59] LABS: PLATELET 195 x1000/uL (130-400); RED BLOOD CELL COUNT 2.98 mill/uL (4.7-6.1); RED CELL DISTRIBUTION WIDTH 17.0 % (11.6-14.6)
[2025-09-08 22:36] LABS: UREA NITROGEN BLOOD 36.0 mg/dL (9-23)
[2025-09-08 22:37] LABS: CREATININE 9.4 mg/dL (0.6-1.3)
[2025-09-09] VITALS: BP 145/75; PULSE 97; RESP 18; TEMP 37.2; O2SAT 96
[2025-09-09 08:00] VITALS: BP 130/68; PULSE 88; RESP 18; TEMP 36.3; O2SAT 95
[2025-09-09 12:00] VITALS: BP 126/43; PULSE 89; RESP 17; TEMP 36.6; O2SAT 96
[2025-09-09 16:00] VITALS: BP 132/50; PULSE 80; RESP 20; TEMP 35.9; O2SAT 97
[2025-09-09 20:00] VITALS: BP 141/79; PULSE 69; RESP 18; TEMP 36.5; O2SAT 97
[2025-09-10] VITALS (14 sets, daily range): BP systolic 123–165; BP diastolic 50–84; PULSE 80–98; RESP 16–20; TEMP 35.6–37.00296; O2SAT 95–100
[2025-09-10 11:49] LABS: BASOPHILS % 0.7 % (0.0-2.0); EOSINOPHILS % 2.5 % (0.0-5.0); HEMATOCRIT. 25.7 % (42.0-52.0); HEMOGLOBIN. 8.4 g/dL (14.0-18.0); LYMPHOCYTES % 7.5 % (20.0-50.0); MEAN PLATELET VOLUME 8.5 fl (7.4-10.4); MONOCYTES % 7.2 % (2.0-8.0); NEUTROPHILS % 82.1 % (40.0-76.0); PLATELET 239 x1000/uL (130-400); RED BLOOD CELL COUNT 3.09 mill/uL (4.7-6.1); RED CELL DISTRIBUTION WIDTH 17.2 % (11.6-14.6)
[2025-09-10 12:10] LABS: UREA NITROGEN BLOOD 37.0 mg/dL (9-23)
[2025-09-10 12:15] LABS: CREATININE 7.8 mg/dL (0.6-1.3)
[2025-09-11] VITALS: BP 125/80; PULSE 91; RESP 18; TEMP 36.3; O2SAT 100
[2025-09-11 04:00] VITALS: PULSE 77; RESP 18; TEMP 35.7; O2SAT 100
[2025-09-11 08:00] VITALS: BP 113/57; PULSE 64; RESP 15; TEMP 36.4; O2SAT 96
[2025-09-11 12:00] VITALS: BP 123/63; PULSE 77; RESP 14; TEMP 36.3; O2SAT 95
[2025-09-11 16:00] VITALS: BP 124/76; PULSE 84; RESP 14; RESP 16; TEMP 36.4; O2SAT 95; O2SAT 99
[2025-09-11 20:00] VITALS: BP 148/92; PULSE 93; RESP 18; TEMP 36.3; O2SAT 100
[2025-09-12] VITALS (10 sets, daily range): BP systolic 107–148; BP diastolic 61–92; PULSE 76–99; RESP 16–20; TEMP 35.7–36.4; O2SAT 97–100
[2025-09-12] MEDS ORDERED: ONDANSETRON HCL 4MG/2ML INJ IV PRN (05:30)
[2025-09-12] MEDS: DOCUSATE SODIUM 100MG CAPSULE PO PRN (05:57)
[2025-09-12] MEDS ORDERED: HYDRALAZINE HCL 100MG TABLET PO SCH (06:00)
[2025-09-12] MEDS: PANTOPRAZOLE 40MG DR TABLET PO SCH (08:22)
[2025-09-12] MEDS: ASPIRIN 81MG EC TABLET PO SCH (08:23)
[2025-09-12] MEDS: ATORVASTATIN CALCIUM 40MG TABLET PO SCH (08:25)
[2025-09-12] MEDS: HYDRALAZINE HCL 100MG TABLET PO SCH (13:26)
[2025-09-13 04:00] VITALS: BP 148/79; PULSE 88; RESP 18; TEMP 35.6; O2SAT 99
[2025-09-13 08:00] VITALS: BP 149/82; PULSE 85; RESP 18; TEMP 36.4; O2SAT 99
[2025-09-13 12:00] VITALS: BP 130/54; PULSE 87; RESP 18; TEMP 35.2; O2SAT 97
[2025-09-13 16:00] VITALS: BP 128/57; PULSE 85; RESP 18; TEMP 35.8; O2SAT 97
[2025-09-13 20:00] VITALS: BP 110/44; PULSE 84; RESP 18; TEMP 36.1; O2SAT 99
[2025-09-14] VITALS (14 sets, daily range): BP systolic 110–145; BP diastolic 57–86; PULSE 86–93; RESP 14–20; TEMP 36.1–36.61404; O2SAT 97–99
[2025-09-15] VITALS: BP 143/67; PULSE 92; RESP 18; TEMP 36.7; O2SAT 100
[2025-09-15 04:00] VITALS: BP 133/69; PULSE 89; RESP 19; TEMP 26.3; O2SAT 100
[2025-09-15 08:00] VITALS: BP 130/70; PULSE 80; RESP 20; TEMP 36.8; O2SAT 100
[2025-09-15 12:00] VITALS: BP 140/77; PULSE 81; RESP 20; TEMP 36.7; O2SAT 100
[2025-09-15 16:00] VITALS: BP 155/85; PULSE 79; RESP 20; TEMP 37; O2SAT 100
[2025-09-15 20:00] VITALS: BP 127/64; PULSE 80; RESP 28; TEMP 36.2; O2SAT 93
[2025-09-16] VITALS (14 sets, daily range): BP systolic 120–147; BP diastolic 58–78; PULSE 73–87; RESP 16–20; TEMP 36.2–36.6; O2SAT 90–100
[2025-09-17] VITALS: BP 120/66; PULSE 73; RESP 19; TEMP 36.3; O2SAT 98
[2025-09-17 04:00] VITALS: BP 150/62; PULSE 87; RESP 19; TEMP 36.4; O2SAT 99
[2025-09-17] MEDS: LACTULOSE 20G/30ML UDC PO PRN (05:52)
[2025-09-17 08:00] VITALS: BP 136/58; PULSE 78; RESP 16; TEMP 36.2; O2SAT 99
[2025-09-17 12:00] VITALS: BP 115/64; PULSE 70; RESP 18; TEMP 36.3; O2SAT 99
[2025-09-17 16:00] VITALS: BP 117/58; PULSE 82; RESP 17; TEMP 36.3; O2SAT 95
[2025-09-17] MEDS: ACETAMINOPHEN 325MG TABLET PO PRN (17:29)
[2025-09-17 20:00] VITALS: BP 141/82; PULSE 78; RESP 18; TEMP 36.2; O2SAT 95
[2025-09-18] VITALS (15 sets, daily range): BP systolic 123–177; BP diastolic 51–92; PULSE 71–90; RESP 17–21; TEMP 36.3–37.8; O2SAT 95–100
[2025-09-19] VITALS: BP 119/60; PULSE 93; RESP 18; TEMP 36.8; O2SAT 98
[2025-09-19 04:00] VITALS: BP 115/64; PULSE 95; RESP 18; TEMP 36.8; O2SAT 95
[2025-09-19 08:00] VITALS: BP 140/61; PULSE 101; RESP 21; TEMP 36.4; O2SAT 98
[2025-09-19 12:00] VITALS: BP 143/73; PULSE 100; RESP 20; TEMP 35.8; O2SAT 99
[2025-09-19 16:00] VITALS: BP 126/68; PULSE 89; RESP 18; TEMP 36.5; O2SAT 98
[2025-09-19 20:00] VITALS: BP 136/73; PULSE 91; RESP 18; TEMP 36.4; O2SAT 97
[2025-09-20] VITALS (13 sets, daily range): BP systolic 101–152; BP diastolic 62–92; PULSE 63–94; RESP 16–20; TEMP 35.9–36.7; O2SAT 95–98
[2025-09-21] VITALS: BP 138/73; PULSE 94; RESP 19; TEMP 36.7; O2SAT 100
[2025-09-21] MEDS: GUAIFENESIN-DM 200MG-20MG/10ML UDC PO PRN (00:43)
[2025-09-21 04:00] VITALS: BP 150/82; PULSE 96; RESP 18; TEMP 36.7; O2SAT 100
[2025-09-21 08:00] VITALS: BP 152/82; PULSE 95; RESP 20; TEMP 36.9; O2SAT 100
[2025-09-21 12:00] VITALS: BP 143/75; PULSE 94; RESP 18; TEMP 36.3; O2SAT 100
[2025-09-21 16:00] VITALS: BP 118/66; PULSE 89; RESP 18; TEMP 36.4; O2SAT 98
[2025-09-21 20:00] VITALS: BP 146/76; PULSE 89; RESP 19; TEMP 35.8; O2SAT 100
[2025-09-22] VITALS (14 sets, daily range): BP systolic 107–155; BP diastolic 56–86; PULSE 84–97; RESP 16–18; TEMP 36.2–36.6; O2SAT 96–100
[2025-09-23] VITALS: BP 138/77; PULSE 89; TEMP 36.7; O2SAT 93
[2025-09-23 04:00] VITALS: BP 138/70; PULSE 90; RESP 19; TEMP 36.9; O2SAT 97
[2025-09-23 08:00] VITALS: BP 144/79; PULSE 84; RESP 18; TEMP 36.8; O2SAT 98
[2025-09-23 12:00] VITALS: BP 135/75; PULSE 92; RESP 20; TEMP 36.7; O2SAT 97
[2025-09-23 16:00] VITALS: BP 139/77; PULSE 88; RESP 17; TEMP 36.9; O2SAT 97
[2025-09-23 20:00] VITALS: BP 117/71; PULSE 74; RESP 16; TEMP 36; O2SAT 100
[2025-09-23 22:12] LABS: HEPATITIS A AB IGM NEGATIVE (Negative)
[2025-09-23 22:13] LABS: HEPATITIS B CORE AB IGM NEGATIVE (Negative); HEPATITIS C AB NON REACTIVE (Neg) (Negative)
[2025-09-24] VITALS (13 sets, daily range): BP systolic 108–149; BP diastolic 49–79; PULSE 70–87; RESP 14–20; TEMP 36.3–36.7; O2SAT 97–100
== END 2025-09-24 20:03 | DRG 291 ==
LOC: ER 19:26 → EDBEDREQTM 21:03 → EDBEDREQ 21:03 → EDBEDREQSVC 21:03 → ENRESERV 21:16 → 6EST 21:57 → 7EST 08-27 23:47
PROVIDERS: ADMIT Internal Medicine; ATTEND Internal Medicine
PROC: 5A1D70Z Performance of Urinary Filtration, Intermittent, Less than 6 Hours Per Day (ICD-10-PCS; principal; 2025-08-15)
PROC: 5A1D70Z Performance of Urinary Filtration, Intermittent, Less than 6 Hours Per Day (ICD-10-PCS; 2025-08-17)
PROC: 5A1D70Z Performance of Urinary Filtration, Intermittent, Less than 6 Hours Per Day (ICD-10-PCS; 2025-08-19)
PROC: 5A1D70Z Performance of Urinary Filtration, Intermittent, Less than 6 Hours Per Day (ICD-10-PCS; 2025-08-21)
PROC: 5A1D70Z Performance of Urinary Filtration, Intermittent, Less than 6 Hours Per Day (ICD-10-PCS; 2025-08-23)
PROC: 5A1D70Z Performance of Urinary Filtration, Intermittent, Less than 6 Hours Per Day (ICD-10-PCS; 2025-08-26)
PROC: 5A1D70Z Performance of Urinary Filtration, Intermittent, Less than 6 Hours Per Day (ICD-10-PCS; 2025-08-28)
PROC: 5A1D70Z Performance of Urinary Filtration, Intermittent, Less than 6 Hours Per Day (ICD-10-PCS; 2025-08-30)
PROC: 5A1D70Z Performance of Urinary Filtration, Intermittent, Less than 6 Hours Per Day (ICD-10-PCS; 2025-09-01)
PROC: 5A1D70Z Performance of Urinary Filtration, Intermittent, Less than 6 Hours Per Day (ICD-10-PCS; 2025-09-03)
PROC: 5A1D70Z Performance of Urinary Filtration, Intermittent, Less than 6 Hours Per Day (ICD-10-PCS; 2025-09-05)
PROC: 5A1D70Z Performance of Urinary Filtration, Intermittent, Less than 6 Hours Per Day (ICD-10-PCS; 2025-09-08)
PROC: 5A1D70Z Performance of Urinary Filtration, Intermittent, Less than 6 Hours Per Day (ICD-10-PCS; 2025-09-10)
PROC: 5A1D70Z Performance of Urinary Filtration, Intermittent, Less than 6 Hours Per Day (ICD-10-PCS; 2025-09-12)
PROC: 5A1D70Z Performance of Urinary Filtration, Intermittent, Less than 6 Hours Per Day (ICD-10-PCS; 2025-09-14)
PROC: 5A1D70Z Performance of Urinary Filtration, Intermittent, Less than 6 Hours Per Day (ICD-10-PCS; 2025-09-16)
PROC: 5A1D70Z Performance of Urinary Filtration, Intermittent, Less than 6 Hours Per Day (ICD-10-PCS; 2025-09-18)
PROC: 5A1D70Z Performance of Urinary Filtration, Intermittent, Less than 6 Hours Per Day (ICD-10-PCS; 2025-09-20)
PROC: 5A1D70Z Performance of Urinary Filtration, Intermittent, Less than 6 Hours Per Day (ICD-10-PCS; 2025-09-22)
PROC: 5A1D70Z Performance of Urinary Filtration, Intermittent, Less than 6 Hours Per Day (ICD-10-PCS; 2025-09-24)
DX: I13.2 Hypertensive heart and chronic kidney disease with heart failure and with stage 5 chronic kidney disease, or end stage renal disease (principal); N18.6 End stage renal disease; I27.21 Secondary pulmonary arterial hypertension; I69.354 Hemiplegia and hemiparesis following cerebral infarction affecting left non-dominant side; R45.851 Suicidal ideations; Z99.2 Dependence on renal dialysis; I50.32 Chronic diastolic (congestive) heart failure; E11.51 Type 2 diabetes mellitus with diabetic peripheral angiopathy without gangrene; D64.9 Anemia, unspecified; F32.A Depression, unspecified; I08.3 Combined rheumatic disorders of mitral, aortic and tricuspid valves; E11.22 Type 2 diabetes mellitus with diabetic chronic kidney disease; S80.811A Abrasion, right lower leg, initial encounter; R07.89 Other chest pain; E78.00 Pure hypercholesterolemia, unspecified; X58.XXXA Exposure to other specified factors, initial encounter; Y93.89 Activity, other specified; Y92.89 Other specified places as the place of occurrence of the external cause; Y99.8 Other external cause status
CPT/HCPCS: 36415; 71045; 74018; 80048; 80051; 80076; 82962; 83735; 83880; 84484; 85025; 85027; 86705; 86709; 87340; 90935; 97162; 99285; A4606; A4615; J1644; J1815; Q0163